=== PATIENT | male | born 1990 | race Caucasian/White ===

== ENCOUNTER 2020-11-24 10:26 | Emergency (ER) | payer OTHER ==
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
[2020-11-24] MEDS ORDERED: KETOROLAC 30 MG/ML INJ ONE (11:22)
[2020-11-24] MEDS ORDERED: ONDANSETRON 4 MG/2 ML VIAL ONE (11:22)
[2020-11-24] MEDS ORDERED: MORPHINE 4 MG/ML SYR ONE (11:22)
[2020-11-24] MEDS ORDERED: NA CHLORIDE 0.9% 1,000 ML ONE (11:22)
[2020-11-24 11:25] LABS: Absolute Lymphocytes (CBC) 1.4 K/uL (0.7-4.9); Basophils % 0.4 % (0-1.3); Lymphocytes % 13.9 % (15.3-44.8); MPV 8.3 fL (7.6-11.3); RBC Red Blood Cell Count 5.12 M/uL (4.33-5.43)
[2020-11-24 11:36] LABS: ALT/SGPT 22 U/L (12-78); AST/SGOT 14 U/L (15-37); Albumin 4.7 g/dL (3.4-5.0); Alkaline Phosphatase 103 U/L (45-117); BUN Blood Urea Nitrogen 11 mg/dL (7-18); Bicarbonate 24 mmol/L (21-32); Bilirubin Total 1.7 mg/dL (0.2-1.0); Glucose Level 93 mg/dL (74-106); Potassium 3.7 mmol/L (3.5-5.1); Protein, Total 8.1 g/dL (6.4-8.2); Sodium Level 140 mmol/L (136-145)
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
[2020-11-24] MEDS ORDERED: TRAMADOL 37.5mg/APAP 325mg PER TAB ONE (13:08)
[2020-11-24 13:14] VITALS: TEMP 99.2
[2020-11-24 13:16] VITALS: BP 125/73; O2SAT 99
== END 2020-11-24 13:06 | disposition home or self-care (01) ==
LOC: ER 10:26
DX: S42.022A Displaced fracture of shaft of left clavicle, initial encounter for closed fracture (principal); S20.222A Contusion of left back wall of thorax, initial encounter; S20.212A Contusion of left front wall of thorax, initial encounter; V49.9XXA Car occupant (driver) (passenger) injured in unspecified traffic accident, initial encounter
CPT/HCPCS: 96361; 85025; 36415; 80053; 70450; 72125; 71260; 74177; 73030; 96375; 96374; 99284; Q9967; J7030; J2405